=== PATIENT | male | born 1995 | race Caucasian/White ===

== ENCOUNTER 2022-03-05 12:55 | Emergency (ER) | payer SELFPAY ==
[2022-03-05 13:00] VITALS: BP 133/93; PULSE 71; RESP 16; TEMP 36.6; O2SAT 98; BMI 29.3
--- NOTE | 2022-03-05 13:56 | ED_ITS ---
HPI - General Adult General: Chief complaint: General Medical Stated complaint: dental pain Time Seen by Provider: 03/05/22 13:56 History of Present Illness: dental caries, nerve exposed, antibx failure Review of Systems General: Reports: 10 or more systems reviewed and unremarkable except in HPI and below ENMT: Reports: dental pain Physical Exam Const: COMMON NORMALS: no acute distress, patient oriented x3, no limitations and alert GENERAL APPEARANCE: cooperative and comfortable ORIENTATION/CONSCIOUSNESS: Yes awake, Yes oriented to person, Yes oriented to place and Yes oriented to time HENMT: COMMON NORMALS: normocephalic, atraumatic, external ears normal, EAC's normal, TM's normal bilaterally and Normal external nose present HEAD & SCALP : normal to inspection, normocephalic and atraumatic FACE & SINUS: normal facial exam, sinuses nontender and face symmetric NOSE: Normal external nose present, Normal nares present and No nasal discharge present EXTERNAL EAR: Yes external ears normal EXTERNAL AUDITORY CANAL: EAC's normal TYMPANIC MEMBRANE: TM's normal bilaterally MOUTH: Normal oral and palatal mucosa present, lip normal and tongue normal TEETH & GINGIVA IMAGES: 1. dental caries, swelling, nerve exposed THROAT: posterior oropharynx normal, tonsils normal and uvula midline Eye: COMMON NORMALS: Equal, round and reactive pupils present, EOMs intact bilaterally and conjunctivae normal GENERAL EYE: appearance normal, both eyes and all related structures and normal light reflex EYELID: eyelids normal CONJUNCTIVA: Yes conjunctivae normal PUPIL: Yes Equal, round and reactive pupils present EOM: Yes EOM abnormal DIRECT OPHTHALMOSCOPY: Yes normal light reflex Neck/C-Spine: COMMON NORMALS: full ROM, no lymphadenopathy, supple, no m eningeal signs, no JVD and Thyroid normal GENERAL: Yes normal visual insp ection THYROID: Thyroid normal CERVICAL SPINE: Yes cervical ROM normal and Yes normal cervical lordosis Lymph: LYMPHATIC: no lymphadenopathy noted Chest: COMMONS NORMALS: normal inspection of the chest and normal palpation of entire chest wall Resp: COMMON NORMALS: normal respiratory effort, No retractions and clear to auscultation bilaterally AUSCULTATION: clear to auscultation bilaterally Cardio: COMMON NORMALS: no JVD, regular rate, regular rhythm, S1 normal heart sound present, S2 normal heart sound present, No gallops present (Cardio), No clicks present (Cardio), No murmurs present (Cardio), No rub (Cardio) and Peripheral pulses 2+ throughout RATE: regular rate RHYTHM: regular rhythm HEART SOUNDS: S1 normal heart sound present and S2 normal heart sound present PERIPHERAL PULSES: Peripheral pulses 2+ throughout GI: COMMON NORMALS: Normal to inspection, nondistended, normoactive bowel sounds present, Soft to palpation, non-tender and no masses PALPATION: Yes Soft to palpation : COMMON NORMALS: Yes no CVA tenderness BLADDER/KIDNEY EXAM: Yes no CVA tenderness Back/Pelvis: COMMON NORMALS: no CVA tenderness, thoracic and lumbar spine normal to inspection, no thoracic nor lumbar tenderness and thoraco-lumbar ROM normal Extremity: COMMON NORMALS: normal to inspection, full ROM, capillary refill normal, no joint enlargement, no clubbing, cyanosis or edema, no calf tenderness and no pedal edema GENERAL: Yes normal exam except as noted Neuro: COMMON NORMALS: patient oriented x3, moves all extremities, no focal motor deficits, no sensory deficits noted and gait normal SENSORIUM/ORIENTATION: Yes alert, Yes oriented to person, Yes oriented to place and Yes oriented to time MENINGEAL SIGNS: Yes no meningeal signs Psych: COMMON NORMALS: mental status grossly normal, Normal thought process present, cooperative, normal affect, speech normal and activity/motor behavior normal SPEECH: Yes normal speech THOUGHT PROCESS: Normal thought process present Skin: COMMON NORMALS: no rashes or lesions noted, no wounds and turgor normal GENERAL SKIN EXAM: no rashes or lesions noted and turgor normal Course Vital Signs: Vital signs: Vital Signs Temperature 97.8 F 03/05/22 13:00 Pulse Rate 71 03/05/22 13:00 Respiratory Rate 16 03/05/22 13:00 Blood Pressure 133/93 03/05/22 13:00 Pulse Oximetry 98 03/05/22 13:00 Oxygen Delivery Me thod 03/05/22 13:00 MDM - General Adult Medical Decision Making Pt has failed oral antibx with amoxicillin. He will begin oral clindamycin and follow up with dentist as soon as possible. Discharge Plan Discharge Patient Disposition: Home Clinical Impression: Dental caries Condition: Stable Prescriptions: New clindamycin HCl 300 mg capsule 300 mg PO BID 7 Days Qty: 14 0RF Ultram 50 mg tablet 50 mg PO BID Qty: 7 0RF Discharge Orders: Discharge ED (Routine); Ordered 03/05/22 Ordered By: Louise Bright Discharge Diet: Advance as tolerated Discharge Activity: Increase activity as tolerated Patient Instructions: Opioid Safety, Pain Management Activity Restrictions/Additional Instructions: Follow up with dentist without fail Coding Level of Care Code ED Storage Solutions Architect for Chance Oh
[2022-03-05] MEDS: TRAMadol 50 mg Tablet PO (14:17)
[2022-03-05] MEDS: clindamycin 150 mg Capsule 300 MG PO (14:51)
[2022-03-05 15:07] VITALS: RESP 18
== END 2022-03-05 15:24 | disposition home or self-care (01) ==
PROVIDERS: Emergency Provider Nurse Practitioner Family
DX: K02.9 Dental caries, unspecified (principal)
CPT/HCPCS: 99283

== ENCOUNTER 2022-07-06 17:38 | Emergency (ER) | payer OTHER, SELFPAY ==
[2022-07-06 18:05] VITALS: BP 136/81; PULSE 72; RESP 16; TEMP 36.8; O2SAT 95; BMI 30.4
--- NOTE | 2022-07-06 18:53 | ED_ITS ---
HPI - Extremity Problem General: Chief complaint: Extremity Injury, Upper Stated complaint: WC Left Arm Pain Time Seen by Provider: 07/06/22 18:48 Source: patient Mode of arrival: ambulatory Limitations: no limitations History of Present Illness: 26-year-old male states that he had changed out a clutch on a STEMI on Monday did a lot of heavy lifting he states he has been having pain in his left fore arm and wrist mainly over the radial side he states that he had some swelling its improved today states over the weekend it improved then today he lifted some more than had increasing pain denies any injury states pain is currently a 1 out of 10 much improved with rest. Associated symptoms: Deny chest pain, fever(s) or rash Review of Systems Const: Denies: fever(s), chills, body aches or change in appetite Eyes: Denies: blurry vision or eye discomfort ENMT: Denies: throat pain or dental pain Card: Denies: chest pain Resp: Denies: dyspnea GI: Denies: abdominal pain, nausea, vomiting or diarrhea : Denies: dysuria Musc: Reports: extremity pain Skin/Breast: Denies: rash Neuro: Denies: headache(s) Psych: Denies: depression Vernon/Lymph: Denies: easy bruising All/Imm: Denies: urticaria PFSH ED PFSH: Medical History (Updated 07/06/22 @ 19:06 by Hamlet Noe MD) No pertinent past medical history Social History (Updated 07/06/22 @ 18:54 by Hamlet Noe MD) Substance/Drug Use: never Physical Exam Const: COMMON NORMALS: no acute distress, average body habitus and patient oriented x3 HENMT: COMMON NORMALS: normocephalic and atraumatic HEAD & SCALP: normocep halic and atraumatic Eye: COMMON NORMALS: conjunctivae normal CONJUNCTIVA: Yes conjunctivae normal Neck/C-Spine: COMMON NORMALS: full ROM and supple Chest: COMMONS NORMALS: normal inspection of the chest Resp: COMMON NORMALS: normal respiratory effort Cardio: COMMON NORMALS: regular rate RATE: regular rate GI: INSPECTION: Yes normal to inspection Extremity: OTHER: Some tenderness over left wrist over the distal radius no obvious deformity Neuro: COMMON NORMALS: patient oriented x3 Psych: COMMON NORMALS: mental status grossly normal Skin: COMMON NORMALS: no rashes or lesions noted GENERAL SKIN EXAM: no rashes or lesions noted Course Vital Signs: Vital signs: Vital Signs Temperature 98.2 F 07/06/22 18:05 Pulse Rate 72 07/06/22 18:05 Respiratory Rate 16 07/06/22 18:05 Blood Pressure 136/81 07/06/22 18:05 Pulse Oximetry 95 07/06/22 18:05 Oxygen Delivery Me thod 07/06/22 18:05 MDM - Extremity (Nontraumatic) Medical Decision Making Patient presents here with wrist pain likely tendinitis from overuse will Cole wrap he is to ice we will get him follow-up with orthopedics and prescribe him Naprosyn he is stable for discharge. Discharge Plan Discharge Patient Disposition: Home Clinical Impression: Left wrist pain Prescriptions: New Naprosyn 500 mg tablet 500 mg PO BID PRN (Reason: pain) Qty: 20 0RF No Action Ultram 50 mg tablet 50 mg PO BID Qty: 7 0RF Discharge Orders: Discharge ED (Routine); Ordered 07/06/22 Ordered By: Hamlet Noe Referrals: Ko Johnson MD [Physician] - 1-3 days Discharge Diet: Advance as tolerated Discharge Activity: Resume usual activity Patient Instructions: Arthralgia (ED) Coding Level of Care Code ED Color Artist for Chance Oh
--- NOTE | 2022-07-06 18:53 | XRR_ITS ---
PROCEDURE INFORMATION: Exam: XR Left Forearm Exam date and time: 07/06/2022 7:00 PM Age: 26 years old Clinical indication: Pain; Lower or forearm; Left TECHNIQUE: Imaging protocol: Radiologic exam of the left forearm. Views: 2 views. COMPARISON: No relevant prior studies available. FINDINGS: Bones/joints: Normal. Soft tissues: Normal. XR/XR forearm LT 2V [id number] IMPRESSION: No acute findings.
[2022-07-06] MEDS: naproxen 500 mg Tablet PO (19:01)
[2022-07-06 19:14] VITALS: BP 109/76; PULSE 65; RESP 16; O2SAT 94
--- NOTE | 2022-07-07 10:31 | DCPLANNER ---
Addendum entered by Evita Grant 07/12/22 07:48: production stage manager received the following message from the ortho clinic regarding follow up appointment: please see below what was sent to me from [employer] ? no referrals will be approved until we get the medicals from the ER and a work status report. Kinsey Diaz Risk & Swatch Checker ? [employer] [address], [address] [place] [address] O: [phone] C: [phone] F: [phone] On 07/07/22 @ 11:23 Ruth Perdomo Wrote To Evita Grant all wc information in the chart has no envelope machine adjuster contact info. the phone number listed isnt even for [employer]. I have tried calling the [employer] phone numbers and get nowhere. I sent an email to his miller supervisor with [employer] asking if she can get me any case information to get patient approved for a follow up with ortho. production stage manager called and spoke with Kinsey, faxed patients information to [employer]. The employer will call ortho if this is a WC injury after review. Original Note: production stage manager had message to schedule a follow up appointment for patient with ortho. production stage manager sent patients information to the front office staff at ortho. Patients information will be printed and reviewed. Clinic will call patient with appointment information.
--- NOTE | 2022-07-07 14:05 | DCPLANNER ---
Addendum entered by Evita Grant 07/12/22 12:45: senior corporate strategy manager called patient due to no primary care physician - unable to speak with patient at this time, a voicemail was left for patient to return wrapper caser phone call Original Note: senior corporate strategy manager called patient due to no primary care physician - unable to speak with patient at this time, a voicemail was left for patient to return wrapper caser phone call.
== END 2022-07-06 19:13 | disposition home or self-care (01) ==
PROVIDERS: Emergency Provider Emergency Medicine
DX: M79.632 Pain in left forearm (principal); M25.532 Pain in left wrist
CPT/HCPCS: 73090; 99283

== ENCOUNTER 2023-04-26 13:21 | Emergency (ER) | payer SELFPAY ==
[2023-04-26 13:27] VITALS: BP 118/27; PULSE 65; RESP 18; TEMP 36.6; O2SAT 98; BMI 35.5
[2023-04-26] MEDS: ketorolac 30 mg/mL INJ IM (14:03)
--- NOTE | 2023-04-26 14:03 | ED_ITS ---
HPI - Dental/Oral General: Chief complaint: Dental/Oral Stated complaint: mouth pains Time Seen by Provider: 04/26/23 13:34 History of Present Illness: 27-year-old male patient comes in for se chetan dental pain. Patient was started on antibiotics yesterday with minimal to no relief of pain. Patient has been using acetaminophen and ibuprofen to help control pain. Patient appears nontoxic. Patient appears in moderate pain. Minimal to no facial swelling is noted. Associated symptoms: Denies fever(s) Review of Systems General: Reports: 10 or more systems reviewed and unremarkable except in HPI and below Const: Denies: fever(s) ENMT: Reports: dental pain PFS ED PFSH: Medical History No pertinent past medical history Social History (Updated 07/06/22 @ 18:54 by Hamlet Noe MD) Substance/Drug Use: never Physical Exam Const: COMMON NORMALS: alert HENMT: COMMON NORMALS: normocephalic HEAD & SCALP: normocephalic MOUTH: Normal oral and palatal mucosa present TEETH & GINGIVA: Yes fair dentition Neck/C-Spine: COMMON NORMALS: full ROM Resp: COMMON NORMALS: normal respiratory effort Cardio: COMMON NORMALS: regular rate RATE: regular rate Extremity: COMMON NORMALS: normal to inspection Neuro: SENSORIUM/ORIENTATION: Yes alert Skin: COMMON NORMALS: turgor normal GENERAL SKIN EXAM: turgor normal Course Vital Signs: Vital signs: Vital Signs Temperature 98 F 04/26/23 13:27 Pulse Rate 65 04/26/23 13:27 Respiratory Rate 18 04/26/23 13:27 Blood Pressure 118/27 04/26/23 13:27 Pulse Oximetry 98 04/26/23 13:27 [facility] - Dental/Oral Medical Decision Making 27-year-old male patient comes in with complaints of uncontrolled dental pain. On exam patient has no obvious signs of respiratory distress. Posterior pharynx is normal. No obvious dental abscesses noted. No obvious swelling of the face is noted. Patient does have tenderness of the upper and rear molar on the left side. Differential diagnosis includes but not limited to dental abscess, odontalgia, malingering, dental caries. Patient was given 30 mg of Toradol for his pain. Patient was written for 6 tablets of hydrocodone to be used for severe pain. Patient will continue clindamycin and follow-up with dentist. Patient reported understanding agreed to plan. No radiology studies performed this visit Discharge Plan Discharge Patient Disposition: Home Clinical Impression: Toothache Condition: Stable Prescriptions: New hydrocodone-acetaminophen 5-325 mg tablet 1 tab PO Q8H PRN (Reason: pain (scale score 7-10)) Qty: 6 0RF No Action clindamycin HCl 300 mg capsule 300 mg PO TID 7 Days Qty: 21 0RF Discharge Orders: Discharge ED (Routine); Ordered 04/26/23 Ordered By: Fabien Melvin Discharge Diet: Usual diet Discharge Activity: Increase activity as tolerated Patient Instructions: Opioid Safety, Pain Management Activity Restrictions/Additional Instructions: Home and rest. Continue with Tylenol and ibuprofen to help control pain. Use ice or heat for further pain relief. Use hydrocodone for severe pain. Return to ED for new concerns. Coding Level of Care Code ED Microchip Specialist for Chance Oh
== END 2023-04-26 14:08 | disposition home or self-care (01) ==
PROVIDERS: Emergency Provider Nurse Practitioner Family
DX: K08.89 Other specified disorders of teeth and supporting structures (principal)
CPT/HCPCS: 96372; 99284; J1885